=== PATIENT | female | born 1960 | race Caucasian/White ===

== ENCOUNTER → 2017-03-30 | Outpatient (CLI) | payer MEDICAID ==
--- NOTE | 2017-03-30 16:58 | PN ---
PROGRESS NOTE DATE OF SERVICE: 03/30/2017 56-year-old lady who has been followed in [facility] for treatment of obstructive sleep apnea-hypopnea syndrome. Patient successfully continued to use his CPAP equipment every night without significant problem with the machine mask. No snoring. No daytime sleepiness. [place] Sleepiness Scale is 3. The patient lost her weight down from 178 pounds during the previous visit up to 147 pounds today. I checked CPAP unit. CPAP pressure is 6 cm of water usage is 30/30 nights for more than 4 hours. Average usage time is 6.06 hours during. PHYSICAL EXAM: Patient in no distress BP 108/64, HR 58, 16. Height 5 feet 4 inches, weight 147, BMI 25.2, temperature 98.3. Oxygen saturation on room air 100% on room to walk: The oropharynx extremely low position of soft palate. Neck Supple, no JVD. Thyroid is not palpable. LUNGS Clear to percussion and to auscultation. Good air exchange. No wheezing or rhonchi. HEART S1, S2 regular. No murmurs, gallops, or rubs. ABDOMEN Soft and nontender. Bowel sounds are present. No organomegaly appreciated. EXTREMITIES No clubbing or cyanosis. EXPERIMENTAL MACHINING LAB MANAGER Awake, alert, and oriented X3. Cranial nerves 2 to 7 intact. There is no fasciculation or atrophy. noted. No focal deficits observed. IMPRESSION: 1. Obstructive sleep apnea-hypopnea syndrome. Patient demonstrated 100% compliance with treatment benefitting from treatment. 2. Patient normalize showed weight to normal, body mass index 25.2. 3. History of allergy, not any seasonal allergy problems for the last two months. 4. Status post hysterectomy. PLAN: 1. Patient will continue to use her CPAP equipment every night. 2. Watching weight. 3. No driving if feeling sleepiness. 4. Sleep hygiene with time in bed for at least 8 hours. 5. Prescription for all necessary CPAP supplies. Thank you very much for allowing me to participate in management of your patient. Sincerely, Danny Best MD, PhD, FAASM Diplomat of [place] [employer] [place] [employer] Skate Shop Attendant of [facility] [place] MMODL / IJN: [id number] /
== END ==
LOC: SLEEP 15:06
PROVIDERS: ATTEND Internal Medicine
DX: G47.33 Obstructive sleep apnea (adult) (pediatric) (principal); Z90.710 Acquired absence of both cervix and uterus; Z68.25 Body mass index [BMI] 25.0-25.9, adult

== ENCOUNTER → 2017-07-10 | Outpatient (CLI) | payer MEDICAID ==
--- NOTE | 2017-07-10 12:36 | BD ---
EXAMINATION TYPE: MG DEXA axial skeleton. DATE OF EXAM: 07/10/2017 COMPARISON: 05.01.2015 CLINICAL HISTORY: 57YR OLD FEMALE: ICD-10 CODE M89.9 DISORDER OF BONE Height: 52.8 Weight: 145 FRAX RISK QUESTIONS: Alcohol (3 or more units per day): NO Family History (Parent hip fracture): NO Glucocorticoids (More than 3mos): NO (Ex: prednisone, prednisolone, methylprednisolone, dexamethasone, and hydrocortisone). History of Fracture in Adulthood: NO Secondary Osteoporosis: NO 1. Type 1 Diabetes: NO 2. Hyperthyroidism: NO 3. Menopause before 45: NO 4. Malnutrition: NO 5. Chronic liver disease: NO Rheumatoid Arthritis: NO Current Tobacco Use: NO RISK FACTORS HISTORY OF: Family History of Osteoporosis: NONE KNOWN Active: YES Diet low in dairy products/other sources of calcium: NO Postmenopausal woman: 50 YRS OLD Hyperparathyroidism: NO Adrenal Insufficiency: NO MEDICATIONS: Additional Medications: NONE TO NOTE Additional History: NONE TO NOTE EXAM MEASUREMENTS: Bone mineral densitometry was performed using the [employer] System. Bone mineral density as measured about the Lumbar spine is: ----- L1-L4(G/cm2): 0.971 T Score Values are as follows: ----- L1: -1.3 ----- L2: -1.9 ----- L3: -2.2 ----- L4: -1.6 ----- L1-L4: -1.7 Bone mineral density has: Decreased -9.6% SINCE 05.01.2015 Bone mineral density about the R hip (g/cm2): 0.920 Bone mineral density about the L hip (g/cm2): 0.921 T Score values are as follows: -----R Neck: -1.1 -----L Neck: -1.4 -----R Total: -0.7 -----L Total: -0.7 Bone mineral density has: Decreased -6.2% SINCE 05.01.2015 FRAX%S: THERE IS A 6.9% CHANCE OF A MAJOR OSTEOPOROTIC FX AND A 0.5% FOR HIP FX....PROBABILITY OF FX IN 10 YRS TIME IMPRESSION: Osteopenia (T Score between -2.5 and -1) with regards to both hips. There is slightly increased risk of fracture and the patient may be considered for treatment. Re-Screen 2-5 years. NOTE: T-SCORE=SD OF THE YOUNG ADULT MEAN.
--- NOTE | 2017-07-11 12:08 | MM ---
Reason for exam: screening (asymptomatic). Last mammogram was performed 1 year and 2 months ago. History: Patient is postmenopausal. Family history of breast cancer in mother at age 65. Benign stereotactic core biopsy of the right breast, June 07, 2004. Took hormonal contraceptives for 8 years 6 months beginning at age 20. Physical Findings: A clinical breast exam by your physician is recommended on an annual basis and results should be correlated with mammographic findings. MG 3D Screening Mammo W/Cad Bilateral CC and MLO view(s) were taken. Prior study comparison: May 03, 2016, bilateral MG 3d screening mammo w/cad. May 12, 2015, left breast MG 3d work up w/cad LT. The breast tissue is heterogeneously dense. This may lower the sensitivity of mammography. Benign calcifications bilaterally. Right biopsy marker noted. ASSESSMENT: Benign, BI-RAD 2 RECOMMENDATION: Routine screening mammogram of both breasts in 1 year.
== END | disposition home or self-care (01) ==
LOC: RADMAMWWP 09:41
PROVIDERS: ATTEND Obstetrics & Gynecology
DX: Z12.31 Encounter for screening mammogram for malignant neoplasm of breast (principal); M85.851 Other specified disorders of bone density and structure, right thigh; M85.852 Other specified disorders of bone density and structure, left thigh
CPT/HCPCS: 77063; 77067; 77080

== ENCOUNTER → 2018-04-12 | Outpatient (CLI) | payer MEDICAID ==
--- NOTE | 2018-04-12 17:37 | PN ---
PROGRESS NOTE DATE OF SERVICE: 04/12/2018 This patient is a 57-year-old lady who has been followed in the sleep center for treatment of obstructive sleep apnea-hypopnea syndrome. Patient continues to use her CPAP equipment every night for the whole night without significant problems related to the CPAP unit, mask or any supplies. No snoring with the machine. No excessive daytime sleepiness. [place] Sleepiness Scale is 4, which is normal. I checked her CPAP unit. Patient is using the equipment every night for the whole night; 100% of the time for more than 4 hours. Average usage is 6.06 hours per night. Machine does not have information about apnea-hypopnea index. MEDICATION: None at the present time. PHYSICAL EXAMINATION: GENERAL: A pleasant patient in no distress. VITAL SIGNS: BP 111/61, HR 65, RR 16, height 5 feet 2-1/2 inches, weight 159.6, body mass index 28.6. Patient's weight increased by around 12 pounds since her previous visit. Temperature 98.1, oxygen saturation at room air 96%. HEENT: PERRLA, EOMI. Evaluation of oropharynx showed tongue protrudes midline. Extremely low position of soft palate. NECK: Supple. No JVD. Thyroid is not palpable. LUNGS: Clear to percussion and to auscultation. Good air exchange. No wheezing or rhonchi. HEART: S1, S2 regular. No murmurs, gallops or rubs. ABDOMEN: Soft and nontender. Bowel sounds are present. No organomegaly. EXTREMITIES: No clubbing or cyanosis. SENIOR QA ANALYST: Awake, alert, and oriented X3. Cranial nerves 2 to 7 intact. There is no fasciculation or atrophy. noted. No focal deficits observed. IMPRESSION: 1. Obstructive sleep apnea-hypopnea syndrome. The patient demonstrated 100% compliance with treatment, benefitting from treatment. 2. History of allergies in the past. No significant problems now. 3. Status post hysterectomy. PLAN: 1. Patient will continue to use her equipment every night for the whole night. 2. We will maintain prescription for all necessary CPAP supplies, including mask, tube, filters. 3. Watching and losing weight. 4. Sleep hygiene with regular time in bed for at least 8 hours. Thank you very much for allowing me to participate in the management of your patient. Sincerely, Danny Best MD, PhD, FAASM Diplomat of [place] [employer] [place] [employer] Road Patcher [facility] [place] MMODL / SITA: [id number] /
== END ==
LOC: SLEEP 15:01
PROVIDERS: ATTEND Internal Medicine
DX: G47.33 Obstructive sleep apnea (adult) (pediatric) (principal); Z90.710 Acquired absence of both cervix and uterus; Z99.89 Dependence on other enabling machines and devices

== ENCOUNTER → 2018-07-12 | Outpatient (CLI) | payer MEDICAID ==
--- NOTE | 2018-07-16 08:15 | MM ---
Reason for exam: screening (asymptomatic). Last mammogram was performed 1 year ago. History: Patient is postmenopausal. Family history of breast cancer in mother at age 65. Benign stereotactic core biopsy of the right breast, June 07, 2004. Took hormonal contraceptives for 8 years 6 months beginning at age 20. Physical Findings: A clinical breast exam by your physician is recommended on an annual basis and results should be correlated with mammographic findings. MG 3D Screening Mammo W/Cad Bilateral CC and MLO view(s) were taken. Prior study comparison: July 10, 2017, bilateral MG 3d screening mammo w/cad. May 03, 2016, bilateral MG 3d screening mammo w/cad. The breast tissue is heterogeneously dense. This may lower the sensitivity of mammography. Previous mammotome biopsy in the right breast. There is chronic nodularity in the right breast. No significant changes when compared with prior studies. ASSESSMENT: Benign, BI-RAD 2 RECOMMENDATION: Routine screening mammogram of both breasts in 1 year.
== END ==
LOC: RADMAMWWP 14:41
PROVIDERS: ATTEND Obstetrics & Gynecology
DX: Z12.31 Encounter for screening mammogram for malignant neoplasm of breast (principal)
CPT/HCPCS: 77063; 77067

== ENCOUNTER → 2019-04-25 | Outpatient (CLI) | payer MEDICAID ==
--- NOTE | 2019-04-25 16:17 | PN ---
PROGRESS NOTE DATE OF SERVICE: 04/25/2019 This patient is a 58-year-old lady who has been followed in Sleep Center for treatment of obstructive sleep apnea-hypopnea syndrome. The patient continues to use her CPAP equipment every night for the whole night without significant problems related to mask fitting, pressure, or humidification. [place] Sleepiness Scale today is 3. I checked her CPAP unit. Usage is 30/30 nights for more than 4 hours. Average usage is 6 hours and 6 minutes. CPAP pressure is 6 cm of water. Her CPAP unit does not have information about apnea-hypopnea index. MEDICATIONS: None. PHYSICAL EXAMINATION: GENERAL: A pleasant patient in no distress. VITAL SIGNS: BP 118/66, HR 70, RR 16. Height 5 feet 4 inches, weight 161, BMI 27.6, temperature 97.6, oxygen saturation at room air 98.1. HEENT: PERRLA, EOMI. Evaluation of oropharynx showed tongue protrudes midline. Extremely low position of soft palate. Mallampati IV. NECK: Supple. No JVD. Thyroid is not palpable. LUNGS: Clear to percussion and to auscultation. Good air exchange. No wheezing or rhonchi. HEART: S1, S2 regular. No murmurs, gallops or rubs. ABDOMEN: Soft and nontender. Bowel sounds are present. No organomegaly. EXTREMITIES: No clubbing or cyanosis. HYDRAULIC BARKER OPERATOR: Awake, alert, and oriented X3. Cranial nerves 2 to 7 intact. There is no fasciculation or atrophy. noted. No focal deficits observed. IMPRESSION: 1. Obstructive sleep apnea-hypopnea syndrome. Patient has demonstrated great compliance with treatment, benefitting from treatment. 2. Status post total hysterectomy. 3. Seasonal allergies. PLAN: 1. Prescription for all necessary CPAP supplies, including mask, tube, filters. 2. Patient will continue to use CPAP equipment every night for the whole night. 3. Watching weight. 4. Sleep hygiene with regular time in bed for 8 hours. 5. Follow-up visit in one year, or earlier if patient has any problems. Thank you very much for allowing me to participate in the management of your patient. Sincerely, Danny Best MD, PhD, FAASM Diplomat of [place] [employer] [place] [employer] Director Of Product Marketing of [facility] [place] MMODL / IJN: [id number] /
== END | disposition home or self-care (01) ==
LOC: SLEEP 15:14
PROVIDERS: ATTEND Internal Medicine
DX: G47.33 Obstructive sleep apnea (adult) (pediatric) (principal); Z90.710 Acquired absence of both cervix and uterus; Z99.89 Dependence on other enabling machines and devices

== ENCOUNTER 2019-10-31 10:24 | Day surgery (SDC) | payer MEDICAID ==
[2019-10-29 15:17] VITALS: BMI 26.6
[~2019-10-31 10:24] MED LIST: LACTATED RINGERS 1,000 ML IV SCH
[2019-10-31 10:49] VITALS: TEMP 98.3
[2019-10-31] MEDS ORDERED: PROPOFOL 10 MG/ML 20 ML VIAL IV ONE (12:07)
--- NOTE | 2019-10-31 12:27 | P.PCN ---
Date of Procedure: 10/31/19 Procedure(s) Performed: BRIEF HISTORY: Patient is a 58-year-old pleasant female scheduled for an elective colonoscopy as a part of screening for colorectal neoplasia. Last colonoscopy was 10 years ago. PROCEDURE PERFORMED: Colonoscopy. PREOPERATIVE DIAGNOSIS: Screening for colon cancer. IV sedation per Anesthesia. PROCEDURE: After informed consent was obtained, the patient, was brought into the endoscopy unit. IV sedation was administered by Anesthesia under continuous monitoring. Digital rectal examination was normal. Initially the Olympus CF-160 flexible video colonoscope was then inserted in the rectum, gradually advanced into the cecum without any difficulty. Careful examination was performed as the scope was gradually being withdrawn. Ileocecal valve and the appendiceal orifice were visualized and appeared normal. Prep was excellent. Mucosa of the cecum, ascending colon, transverse colon, descending colon, sigmoid colon, and rectum appeared normal. Retroflexion was performed in the rectum and no lesions were seen. The patient tolerated the procedure well. IMPRESSION: Normal-appearing colon from rectum to cecum with no evidence of colorectal neoplasia. RECOMMENDATIONS: Findings of this examination were discussed with the patient .as well as a family. She was advised to have a repeat screening colonoscopy in 10 years
[2019-10-31 12:47] VITALS: BP 119/68; PULSE 59; RESP 20
== END 2019-10-31 13:08 | disposition home or self-care (01) ==
LOC: ORWHC2ENDO 10:24
PROVIDERS: ATTEND Internal Medicine Gastroenterology
DX: Z12.11 Encounter for screening for malignant neoplasm of colon (principal); G47.33 Obstructive sleep apnea (adult) (pediatric); Z88.0 Allergy status to penicillin; Z91.040 Latex allergy status; Z88.4 Allergy status to anesthetic agent; Z99.89 Dependence on other enabling machines and devices; Z79.899 Other long term (current) drug therapy
CPT/HCPCS: J2704; G0121

== ENCOUNTER → 2019-11-05 | Outpatient (CLI) | payer MEDICAID ==
--- NOTE | 2019-11-06 08:25 | MM ---
Reason for exam: screening (asymptomatic). Last mammogram was performed 1 year and 4 months ago. History: Patient is postmenopausal. Family history of breast cancer in mother at age 65. Benign stereotactic core biopsy of the right breast, June 07, 2004. Took hormonal contraceptives for 8 years 6 months beginning at age 20. Physical Findings: A clinical breast exam by your physician is recommended on an annual basis and results should be correlated with mammographic findings. MG 3D Screening Mammo W/Cad Bilateral CC and MLO view(s) were taken. Prior study comparison: July 12, 2018, bilateral MG 3d screening mammo w/cad. July 10, 2017, bilateral MG 3d screening mammo w/cad. The breast tissue is heterogeneously dense. This may lower the sensitivity of mammography. There is no discrete abnormality. No significant changes when compared with prior studies. ASSESSMENT: Negative, BI-RAD 1 RECOMMENDATION: Routine screening mammogram of both breasts in 1 year.
== END | disposition home or self-care (01) ==
LOC: RADMAMWWP 07:14
PROVIDERS: ATTEND Obstetrics & Gynecology
DX: Z12.31 Encounter for screening mammogram for malignant neoplasm of breast (principal); Z80.3 Family history of malignant neoplasm of breast
CPT/HCPCS: 77063; 77067

== ENCOUNTER → 2019-12-11 | Outpatient (CLI) | payer MEDICAID ==
--- NOTE | 2019-12-11 17:44 | BD ---
EXAMINATION TYPE: Axial Bone Density DATE OF EXAM: 12/11/2019 COMPARISON: 07/10/2017 CLINICAL HISTORY: Height: 62 IN Weight: 166 LBS RISK FACTORS HISTORY OF: Active: YES Diet low in dairy products/other sources of calcium: YES Postmenopausal woman: AGE 48 PARTIAL HYST MEDICATIONS: Additional Medications: CALCIUM, VIT D, EXAM MEASUREMENTS: Bone mineral densitometry was performed using the [employer] System. Bone mineral density as measured about the Lumbar spine is: ----- L1-L4(G/cm2): 0.907 T Score Values are as follows: ----- L2: -2.3 ----- L3: -2.7 ----- L4: -2.2 ----- L1-L4: -2.3 Bone mineral density has: Decreased -5.8% since study of: 07/10/2017 Bone mineral density about the R hip (g/cm2): 0.865 Bone mineral density about the L hip (g/cm2): 0.842 T Score values are as follows: -----R Neck: -1.2 -----L Neck: -1.4 -----R Total: -0.7 -----L Total: -0.6 Bone mineral density has: Increased 0.9% since study of: 07/10/2017 IMPRESSION: Osteopenia (T Score between -2.5 and -1). There is slightly increased risk of fracture and the patient may be considered for treatment. Re-Screen 2-5 years. NOTE: T-SCORE=SD OF THE YOUNG ADULT MEAN.
== END | disposition home or self-care (01) ==
LOC: RADBDWWP 14:43
PROVIDERS: ATTEND Obstetrics & Gynecology
DX: M85.80 Other specified disorders of bone density and structure, unspecified site (principal)
CPT/HCPCS: 77080

== ENCOUNTER 2020-04-27 09:39 | Emergency (ER) | payer MEDICAID ==
[2020-04-27] MEDS ORDERED: MECLIZINE 12.5 MG TAB PO STA (10:11)
[2020-04-27] MEDS ORDERED: SODIUM CHLORIDE 0.9% 1,000 ML IV STA (10:11)
[2020-04-27] MEDS ORDERED: diphenhydrAMINE 50 MG/ML 1 ML VIAL IVP STA (10:13)
[2020-04-27 10:31] LABS: Basophils % (A) 1 %; Eosinophils # (A) 0.1 k/uL (0-0.7); Eosinophils % (A) 2 %; HCT 42.2 % (34.0-46.0); HGB 14.5 gm/dL (11.4-16.0); Lymphocytes # (A) 1.4 k/uL (1.0-4.8); Lymphocytes % (A) 25 %; MCH 30.5 pg (25.0-35.0); MCHC 34.3 g/dL (31.0-37.0); Mean Platelet Volume 8.1; Monocytes # (A) 0.3 k/uL (0-1.0); Monocytes % (A) 4 %; Neutrophils # (A) 3.7 k/uL (1.3-7.7); Neutrophils % (A) 66 %; Platelet Count 237 k/uL (150-450); RBC 4.74 m/uL (3.80-5.40); RDW 11.8 % (11.5-15.5); WBC 5.6 k/uL (3.8-10.6)
[2020-04-27 10:37] LABS: ALT 20 U/L (4-34); AST 21 U/L (14-36); African American GFR (CKD) >90 (>60 ml/min/1.73 sqM); Alkaline Phosphatase 96 U/L (38-126); Anion Gap 6 mmol/L; Blood Urea Nitrogen 13 mg/dL (7-17); C Reactive Protein <5.0 mg/L (<10.0); Calcium 9.8 mg/dL (8.4-10.2); Carbon Dioxide 24 mmol/L (22-30); Chloride 109 mmol/L (98-107); Glucose 100 mg/dL (74-99); Magnesium 1.9 mg/dL (1.6-2.3); Non-African American GFR(CKD) >90 (>60 ml/min/1.73 sqM); Potassium 4.3 mmol/L (3.5-5.1); Sodium 139 mmol/L (137-145); Total Bilirubin 0.6 mg/dL (0.2-1.3); Total Protein 6.8 g/dL (6.3-8.2)
[2020-04-27 10:38] LABS: Partial Thromboplastin Time 23.3 sec (22.0-30.0); Prothrombin Time 10.3 sec (9.0-12.0)
--- NOTE | 2020-04-27 10:48 | XR ---
EXAMINATION TYPE: XR chest 2V DATE OF EXAM: 04/27/2020 COMPARISON: NONE HISTORY: Shortness of breath TECHNIQUE: Frontal and lateral views of the chest are obtained. FINDINGS: Scattered senescent parenchymal changes noted. Hyperinflation compatible with COPD. Patchy density right medial lung base may reflect developing infiltrate. Correlate clinically. Heart size is stable. Mediastinal structures are stable and grossly unremarkable. No evidence for hilar prominence. Degenerative changes dorsal spine. IMPRESSION: 1. Patchy density right medial lung base may reflect developing infiltrate. Correlate clinically.
[2020-04-27 10:49] VITALS: RESP 18
--- NOTE | 2020-04-27 10:51 | ED ---
Dizziness HPI - General Chief Complaint: Dizziness Stated Complaint: dizziness Time Seen by Provider: 04/27/20 10:01 Source: patient, EMS Mode of arrival: EMS Limitations: no limitations - History of Present Illness Initial Comments: Patient is a 59-year-old female presenting to the emergency Department with complaints of dizziness that began this morning. Patient states 3 days ago she began having intermittent diarrhea, some mild nausea and a sore throat. Patient denies having a fever but today has chills. Patient states when she woke up this morning the room was spinning and it has not stopped. She denies history of vertigo. She states she does have some mild shortness of breath but no cough, she denies history of lung disease, COPD. She takes no medications. She admits to mild nausea, no vomiting, no more diarrhea. She denies having headache. She states it does not matter the position she is, the room spinning. She has no further complaints at this time. Upon arrival to the ER, her vitals are stable. - Related Data Home Medications Medication Instructions Recorded Confirmed Cetirizine HCl/Pseudoephedrine 1 tab PO BID PRN 10/29/19 04/27/20 [Zyrtec-D Tablet] Previous Rx's Medication Instructions Recorded Meclizine [Antivert] 25 mg PO BID #20 tab 04/27/20 Allergies Allergy/AdvReac Type Severity Reaction Status Date / Time Penicillins Allergy Severe SEVERE Verified 04/27/20 10:23 REACTION IN FAMILY latex Allergy Intermediate ITCHY Verified 04/27/20 10:23 EYES, SENSITIVE SKIN lidocaine Allergy Intermediate SWEATING Verified 04/27/20 10:23 PROFUSELY, DYSPNEA Review of Systems ROS Statement: Those systems with pertinent positive or pertinent negative responses have been documented in the HPI. ROS Other: All systems not noted in ROS Statement are negative. Past Medical History Past Medical History: No Reported History History of Any Multi-Drug Resistant Organisms: None Reported Past Surgical History: Hysterectomy Additional Past Surgical History / Comment(s): bladder sling Past Psychological History: No Psychological Hx Reported Smoking Status: Never smoker Past Alcohol Use History: Occasional Past Drug Use History: None Reported General Exam - General Exam Comments Initial Comments: GENERAL: Patient is well-developed and well-nourished. Patient is nontoxic and in mild distress. HEAD: Atraumatic, normocephalic. EYES: Pupils equal round and reactive to light, extraocular movements intact, sclera anicteric, conjunctiva are normal. Eyelids were unremarkable. No nystagmus. ENT: TMs normal, nares patent, oropharynx clear without exudates. Moist mucous membranes. NECK: Normal range of motion, supple without lymphadenopathy or JVD. LUNGS: Unlabored respirations. Breath sounds clear to auscultation bilaterally and equal. No wheezes rales or rhonchi. HEART: Regular rate and rhythm without murmurs, rubs or gallops. ABDOMEN: Soft, nontender, normoactive bowel sounds. No guarding, no rebound. No masses appreciated. : Deferred MUSCULOSKELETAL: Normal extremities with adequate strength and normal range of motion, no pitting or edema. No clubbing or cyanosis. NEUROLOGICAL: Patient is alert and oriented x 3. Motor and sensory are also intact. Cranial nerves II through XII grossly intact. Symmetrical smile. Normal speech, normal gait. PSYCH: Normal mood, normal affect. SKIN: Warm, Dry, normal turgor, no rashes or lesions noted. Limitations: no limitations Course Vital Signs 04/27/20 04/27/20 04/27/20 09:42 10:02 10:48 Temperature 97.3 F L Pulse Rate 65 65 Pulse Rate [ 62 Automatic Glove Former ] Respiratory 24 18 Rate Blood Pressure 114/96 121/49 O2 Sat by Pulse 100 100 Oximetry 04/27/20 04/27/20 11:19 12:11 Temperature 97.7 F Pulse Rate 70 67 Pulse Rate [ Automatic Glove Former ] Respiratory 18 18 Rate Blood Pressure 122/67 111/66 O2 Sat by Pulse 100 98 Oximetry EKG Findings - EKG Comments: EKG Findings:: Normal sinus rhythm, normal ECG, no signs of acute process. Ventricular rate 64, IN interval 1:30, QTC 428. Medical Decision Making - Medical Decision Making Patient is a 59-year-old female here for dizziness that started this morning. Her vital signs are stable upon arrival, her exam is unremarkable, no acute neuro deficits. Labs show a normal white count, normal coags, lactic acid is slightly elevated at 2.2, troponin and CRP are both negative. Urine shows no evidence of infection, rapid Covid test is not detected. EKG shows no acute process, chest x-ray reveals a patchy density the right medial lung base, may reflect a developing infiltrate. Patient was given fluids, meclizine as well as Benadryl. She reports improvement in her symptoms. She states the room is not spinning anymore, she continues to feel very mildly lightheaded. She was able to cannulate the restroom without difficulty. She states that she feels well enough to go home. I discussed with patient that her symptoms could be viral related or could be vertigo. I did recommend following up with her PCP. We'll give her prescription for meclizine to use as needed for additional vertigo symptoms. Patient is in agreement with this plan of care. Return parameters were discussed with the patient and she verbalized understanding. Case dis cussed with Dr. Vance. - Lab Data Result diagrams: 04/27/20 10:15 04/27/20 10:15 Lab Results 04/27/20 04/27/20 04/27/20 Range/Units 10:15 10:15 10:15 WBC 5.6 (3.8-10.6) k/uL RBC 4.74 (3.80-5.40) m/uL Hgb 14.5 (11.4-16.0) gm/dL Hct 42.2 (34.0-46.0) % MCV 89.0 (80.0-100.0) fL MCH 30.5 (25.0-35.0) pg MCHC 34.3 (31.0-37.0) g/dL RDW 11.8 (11.5-15.5) % Plt Count 237 (150-450) k/uL MPV 8.1 Neutrophils % 66 % Lymphocytes % 25 % Monocytes % 4 % Eosinophils % 2 % Basophils % 1 % Neutrophils # 3.7 (1.3-7.7) k/uL Lymphocytes # 1.4 (1.0-4.8) k/uL Monocytes # 0.3 (0-1.0) k/uL Eosinophils # 0.1 (0-0.7) k/uL Basophils # 0.0 (0-0.2) k/uL PT 10.3 (9.0-12.0) sec INR 1.0 (<1.2) APTT 23.3 (22.0-30.0) sec Sodium 139 (137-145) mmol/L Potassium 4.3 (3.5-5.1) mmol/L Chloride 109 H (98-107) mmol/L Carbon Dioxide 24 (22-30) mmol/L Anion Gap 6 mmol/L BUN 13 (7-17) mg/dL Creatinine 0.57 (0.52-1.04) mg/dL Est GFR (CKD-EPI)AfAm >90 (>60 ml/min/1.73 sqM) Est GFR (CKD-EPI)NonAf >90 (>60 ml/min/1.73 sqM) Glucose 100 H (74-99) mg/dL Lactic Ac Sepsis Rflx Plasma Lactic Acid Gennaro (0.7-2.0) mmol/L Calcium 9.8 (8.4-10.2) mg/dL Magnesium 1.9 (1.6-2.3) mg/dL Total Bilirubin 0.6 (0.2-1.3) mg/dL AST 21 (14-36) U/L ALT 20 (4-34) U/L Alkaline Phosphatase 96 (38-126) U/L Troponin I (0.000-0.034) ng/mL C-Reactive Protein <5.0 (<10.0) mg/L Total Protein 6.8 (6.3-8.2) g/dL Albumin 4.0 (3.5-5.0) g/dL Urine Color Urine Appearance (Clear) Urine pH (5.0-8.0) Ur Specific [place] (1.001-1.035) Urine Protein (Negative) Urine Glucose (UA) (Negative) Urine Ketones (Negative) Urine Blood (Negative) Urine Nitrite (Negative) Urine Bilirubin (Negative) Urine Urobilinogen (<2.0) mg/dL Ur Leukocyte Esterase (Negative) Coronavirus (PCR) (Not Detectd) 04/27/20 04/27/20 04/27/20 Range/Units 10:15 10:15 10:15 WBC (3.8-10.6) k/uL RBC (3.80-5.40) m/uL Hgb (11.4-16.0) gm/dL Hct (34.0-46.0) % MCV (80.0-100.0) fL MCH (25.0-35.0) pg MCHC (31.0-37.0) g/dL RDW (11.5-15.5) % Plt Count (150-450) k/uL MPV Neutrophils % % Lymphocytes % % Monocytes % % Eosinophils % % Basophils % % Neutrophils # (1.3-7.7) k/uL Lymphocytes # (1.0-4.8) k/uL Monocytes # (0-1.0) k/uL Eosinophils # (0-0.7) k/uL Basophils # (0-0.2) k/uL PT (9.0-12.0) sec INR (<1.2) APTT (22.0-30.0) sec Sodium (137-145) mmol/L Potassium (3.5-5.1) mmol/L Chloride (98-107) mmol/L Carbon Dioxide (22-30) mmol/L Anion Gap mmol/L BUN (7-17) mg/dL Creatinine (0.52-1.04) mg/dL Est GFR (CKD-EPI)AfAm (>60 ml/min/1.73 sqM) Est GFR (CKD-EPI)NonAf (>60 ml/min/1.73 sqM) Glucose (74-99) mg/dL Lactic Ac Sepsis Rflx Plasma Lactic Acid Gennaro 2.2 H* (0.7-2.0) mmol/L Calcium (8.4-10.2) mg/dL Magnesium (1.6-2.3) mg/dL Total Bilirubin (0.2-1.3) mg/dL AST (14-36) U/L ALT (4-34) U/L Alkaline Phosphatase (38-126) U/L Troponin I <0.012 (0.000-0.034) ng/mL C-Reactive Protein (<10.0) mg/L Total Protein (6.3-8.2) g/dL Albumin (3.5-5.0) g/dL Urine Color Urine Appearance (Clear) Urine pH (5.0-8.0) Ur Specific [place] (1.001-1.035) Urine Protein (Negative) Urine Glucose (UA) (Negative) Urine Ketones (Negative) Urine Blood (Negative) Urine Nitrite (Negative) Urine Bilirubin (Negative) Urine Urobilinogen (<2.0) mg/dL Ur Leukocyte Esterase (Negative) Coronavirus (PCR) Not Detected (Not Detectd) 04/27/20 04/27/20 Range/Units 10:45 11:05 WBC (3.8-10.6) k/uL RBC (3.80-5.40) m/uL Hgb (11.4-16.0) gm/dL Hct (34.0-46.0) % MCV (80.0-100.0) fL MCH (25.0-35.0) pg MCHC (31.0-37.0) g/dL RDW (11.5-15.5) % Plt Count (150-450) k/uL MPV Neutrophils % % Lymphocytes % % Monocytes % % Eosinophils % % Basophils % % Neutrophils # (1.3-7.7) k/uL Lymphocytes # (1.0-4.8) k/uL Monocytes # (0-1.0) k/uL Eosinophils # (0-0.7) k/uL Basophils # (0-0.2) k/uL PT (9.0-12.0) sec INR (<1.2) APTT (22.0-30.0) sec Sodium (137-145) mmol/L Potassium (3.5-5.1) mmol/L Chloride (98-107) mmol/L Carbon Dioxide (22-30) mmol/L Anion Gap mmol/L BUN (7-17) mg/dL Creatinine (0.52-1.04) mg/dL Est GFR (CKD-EPI)AfAm (>60 ml/min/1.73 sqM) Est GFR (CKD-EPI)NonAf (>60 ml/min/1.73 sqM) Glucose (74-99) mg/dL Lactic Ac Sepsis Rflx Y Plasma Lactic Acid Gennaro (0.7-2.0) mmol/L Calcium (8.4-10.2) mg/dL Magnesium (1.6-2.3) mg/dL Total Bilirubin (0.2-1.3) mg/dL AST (14-36) U/L ALT (4-34) U/L Alkaline Phosphatase (38-126) U/L Troponin I (0.000-0.034) ng/mL C-Reactive Protein (<10.0) mg/L Total Protein (6.3-8.2) g/dL Albumin (3.5-5.0) g/dL Urine Color Colorless Urine Appearance Clear (Clear) Urine pH 8.0 (5.0-8.0) Ur Specific [place] 1.004 (1.001-1.035) Urine Protein Negative (Negative) Urine Glucose (UA) Negative (Negative) Urine Ketones Negative (Negative) Urine Blood Negative (Negative) Urine Nitrite Negative (Negative) Urine Bilirubin Negative (Negative) Urine Urobilinogen <2.0 (<2.0) mg/dL Ur Leukocyte Esterase Negative (Negative) Coronavirus (PCR) (Not Detectd) Disposition Clinical Impression: Dehydration, Dizziness Disposition: HOME SELF-CARE Condition: Stable Instructions (If sedation given, give patient instructions): Dizziness (ED) Additional Instructions: Please return to the Emergency Department if symptoms worsen or any other concerns. Please continue to drink plenty of water. Recommend meclizine for additional dizziness, room spinning. Follow-up with your regular doctor as well as her eye doctor. Prescriptions: Meclizine [Antivert] 25 mg PO BID #20 tab Is patient prescribed a controlled substance at d/c from ED?: No Referrals: Mathew Porter MD [Primary Care Provider] - 1-2 days
[2020-04-27 11:21] VITALS: TEMP 97.7
[2020-04-27 11:23] LABS: Appearance,Urine Clear (Clear); Bilirubin,Urine Negative (Negative); Blood,Urine Negative (Negative); Color,Urine Colorless; Glucose,Urine (UA) Negative (Negative); Ketones,Urine Negative (Negative); Leukocyte Esterase,Urine Negative (Negative); Nitrite,Urine Negative (Negative); Protein,Urine Negative (Negative); Specific Gravity,Urine 1.004 (1.001-1.035); Urobilinogen,Urine <2.0 mg/dL (<2.0)
[2020-04-27 12:12] VITALS: BP 111/66; PULSE 67
== END 2020-04-27 12:40 | disposition home or self-care (01) ==
LOC: EC 09:39
DX: R42 Dizziness and giddiness (principal); E86.0 Dehydration; J98.4 Other disorders of lung; R74.02 Elevation of levels of lactic acid dehydrogenase [LDH]; Z88.0 Allergy status to penicillin; Z91.040 Latex allergy status; Z88.4 Allergy status to anesthetic agent; Z20.828 Contact with and (suspected) exposure to other viral communicable diseases
CPT/HCPCS: 36415; 93005; 80053; 83605; 83735; 84484; 85025; 85610; 85730; 86140; 81003; 87635; 71046; 99284; 96374; 96361; J1200

== ENCOUNTER → 2020-07-23 | Outpatient (CLI) | payer MEDICAID ==
--- NOTE | 2020-07-23 16:52 | SFUN ---
SLEEP CENTER FOLLOW UP NOTE DATE OF SERVICE: 07/23/2020 This is a 60-year-old lady who has been followed in the sleep center for treatment of obstructive sleep apnea-hypopnea syndrome. The patient continues to use her CPAP equipment every night for the whole night. No clear information about snoring. [place] Sleepiness Scale today is 4, which is normal. She denied any significant problems related to mask fitting, pressure or humidification. I checked her CPAP unit. Usage is 30/30 nights for more than 4 hours. Average usage is 6 hours per night. CPAP pressure is 6 cm of water. Patient does not have information about apnea-hypopnea index or leak. MEDICATIONS: Zyrtec D. PHYSICAL EXAMINATION: GENERAL: A pleasant patient in no distress. VITAL SIGNS: BP 128/84, HR 76, RR 15, height 5 feet 3-1/2 inches, weight 175.4 pounds, temperature 97.1. Oxygen saturation at room air 99%. HEENT: PERRLA, EOMI. Evaluation of oropharynx showed tongue protrudes midline. Extremely low position of soft palate. Mallampati IV. NECK: Supple. No JVD. Thyroid is not palpable. LUNGS: Clear to percussion and to auscultation. Good air exchange. No wheezing or rhonchi. HEART: S1, S2 regular. No murmurs, gallops or rubs. ABDOMEN: Soft and nontender. Bowel sounds are present. No organomegaly appreciated. EXTREMITIES: No clubbing or cyanosis. POULTRY HATCHERY MANAGER: Awake, alert, and oriented X3. Cranial nerves 2 to 7 intact. There is no fasciculation or atrophy. noted. No focal deficits observed. IMPRESSION: 1. Obstructive sleep apnea-hypopnea syndrome. Patient demonstrated 100% compliance with treatment, benefitting from treatment. 2. Seasonal allergies. 3. Mild obesity. 4. Status post total hysterectomy. PLAN: 1. Patient will continue to use PAP equipment every night for the whole night. 2. Sleep hygiene with regular time in bed for at least 7-1/2 to 8 hours. 3. Precautions related to driving. No driving if feeling sleepiness. 4. I will maintain all necessary prescription for PAP supplies including mask, tube, filters. 5. Watching weight. 6. Follow-up visit in 6 months or earlier if patient has any problems. Thank you very much for allowing me to participate in the management of your patient. Sincerely, Danny Stefadu, MD, PhD, FAASM Diplomat of [employer] Stripper Machine Operator of [facility] [place] MMMARTINEZ / SITA: [id number] /
== END ==
LOC: SLEEP 13:08
PROVIDERS: ATTEND Internal Medicine
DX: G47.33 Obstructive sleep apnea (adult) (pediatric) (principal); J30.2 Other seasonal allergic rhinitis; E66.9 Obesity, unspecified; Z90.710 Acquired absence of both cervix and uterus

== ENCOUNTER → 2021-03-16 | Outpatient (CLI) | payer MEDICAID ==
--- NOTE | 2021-03-18 14:30 | MM ---
Reason for exam: screening (asymptomatic). Last mammogram was performed 1 year and 4 months ago. History: Patient is postmenopausal. Family history of breast cancer in mother at age 65. Benign stereotactic core biopsy of the right breast, June 07, 2004. Took hormonal contraceptives for 8 years 6 months beginning at age 20. Physical Findings: A clinical breast exam by your physician is recommended on an annual basis and results should be correlated with mammographic findings. MG 3D Screening Mammo W/Cad Bilateral CC and MLO view(s) were taken. Prior study comparison: November 05, 2019, bilateral MG 3d screening mammo w/cad. July 12, 2018, bilateral MG 3d screening mammo w/cad. The breast tissue is heterogeneously dense. This may lower the sensitivity of mammography. Previous mammotome biopsy in the right breast. There is chronic nodularity in the right breast. Stable grouped and regional punctate calcifications right posterior upper outer quadrant. No significant changes when compared with prior studies. ASSESSMENT: Benign, BI-RAD 2 RECOMMENDATION: Routine screening mammogram of both breasts in 1 year.
== END | disposition home or self-care (01) ==
LOC: RADMAMWWP 14:59
PROVIDERS: ATTEND Obstetrics & Gynecology
DX: Z12.31 Encounter for screening mammogram for malignant neoplasm of breast (principal); Z78.0 Asymptomatic menopausal state; Z80.3 Family history of malignant neoplasm of breast
CPT/HCPCS: 77063; 77067

== ENCOUNTER → 2021-04-23 | Outpatient (CLI) | payer MEDICAID ==
--- NOTE | 2021-04-23 16:35 | US ---
EXAMINATION TYPE: US transvaginal DATE OF EXAM: 04/23/2021 COMPARISON: US CLINICAL HISTORY: R10.2 Pelvic Pain. Right pelvic pain x 4 days; hysterectomy and bladder sling surge ry 8 years ago; . TECHNIQUE: TV US Transvaginal sonographic images were medically necessary per order Date of LMP: 8 years ago EXAM MEASUREMENTS: Uterus: surgically removed Endometrial Stripe: surgically removed Right Ovary: 1.8 x 1.0 x 1.4 cm Left Ovary: 1.4 x 1.3 x 1.2 cm 1. Right Ovary: small follicle seen 2. Left Ovary: small follicle seen Spectral, color and waveform doppler imaging shows good arterial and venous flow within the ovaries ; there is no evidence for ovarian torsion. 3. Bilateral Adnexa: wnl 4. Posterior cul-de-sac: wnl Impressions: 1. Normal post hysterectomy pelvic ultrasound.
== END | disposition home or self-care (01) ==
LOC: RADUSWWP 12:56
PROVIDERS: ATTEND Obstetrics & Gynecology
DX: R10.2 Pelvic and perineal pain (principal)
CPT/HCPCS: 76830; 93975

== ENCOUNTER → 2021-09-23 | Outpatient (CLI) | payer MEDICAID ==
--- NOTE | 2021-09-23 21:45 | SFUN ---
SLEEP CENTER FOLLOW UP NOTE DATE OF SERVICE: 09/23/2021 This 61-year-old lady has been followed in Sleep Center for treatment of obstructive sleep apnea-hypopnea syndrome. The patient continues to use her CPAP equipment every night, getting her CPAP supplies on time and changing her air filter. [place] Sleepiness Scale today is 5, which is normal. I checked her CPAP unit. Range of the pressure is 5 to 10, usage 30/30 nights for more than 4 hours, average 6.1 hours per night, which is great compliance. Leak is 25 L/minute, which is borderline. Apnea-hypopnea index is 0.8, which is absolutely normal. MEDICATIONS: Zyrtec. PHYSICAL EXAMINATION: GENERAL: Pleasant patient in no distress. VITAL SIGNS: BP 95/60, HR 76, RR 16, height 5 feet 3-1/2 inches, weight 174, BMI 30.3, temperature 98.4, oxygen saturation at room air 97%. HEENT: PERRLA, EOMI, evaluation of oropharynx showed tongue protrudes midline. Extremely low position of soft palate; Mallampati IV. NECK: Supple, no JVD. Thyroid is not palpable. LUNGS: Clear to percussion and to auscultation. Good air exchange. No wheezing or rhonchi. HEART: S1, S2 regular. No murmurs, gallops, or rubs. ABDOMEN: Soft and nontender. Bowel sounds are present. No organomegaly appreciated. EXTREMITIES: No clubbing or cyanosis. STIPPLER: Awake, alert, and oriented X3. Cranial nerves 2 to 7 intact. There is no fasciculation or atrophy. noted. No focal deficits observed. IMPRESSION: 1. Obstructive sleep apnea-hypopnea syndrome. Patient demonstrated 100% compliance with treatment, benefitting from treatment. 2. Mild obesity. 3. Seasonal allergies. 4. Status post total hysterectomy. PLAN: 1. Patient will continue to use PAP equipment every night for the whole night. 2. Sleep hygiene with regular time in bed for at least 7-1/2 to 8 hours. 3. Precautions related to driving. No driving if feeling sleepiness. 4. I will maintain all necessary prescription for PAP supplies including mask, tube, filters. 5. Watching weight. 6. Follow-up visit in 6 months or earlier if patient has any problems. Thank you very much for allowing me to participate in the management of your patient. Sincerely, Danny Best MD, PhD, FAASM Diplomat of [employer] Sleep Medicine Board of [employer] Industry Consultant of [facility] [place] HARESH / SITA: [id number] /
== END ==
LOC: SLEEP 15:11
PROVIDERS: ATTEND Internal Medicine
DX: G47.33 Obstructive sleep apnea (adult) (pediatric) (principal); E66.9 Obesity, unspecified; J30.2 Other seasonal allergic rhinitis; Z90.710 Acquired absence of both cervix and uterus; Z99.89 Dependence on other enabling machines and devices; Z68.30 Body mass index [BMI] 30.0-30.9, adult; Z88.0 Allergy status to penicillin; Z91.040 Latex allergy status; Z88.4 Allergy status to anesthetic agent

== ENCOUNTER → 2022-04-04 | Outpatient (CLI) | payer MEDICAID ==
--- NOTE | 2022-04-05 10:36 | BD ---
EXAMINATION TYPE: Axial Bone Density DATE OF EXAM: 04/04/2022 CLINICAL HISTORY: 61 years year old Female. ICD-10 CODE: M85.88 OTH DISORDER OF BONE Height: 5 FT 2 1/2 IN Weight: 182 FRAX RISK QUESTIONS: Alcohol (3 or more units per day): NO Family History (Parent hip fracture): NO Glucocorticoids (More than 3mos): NO (Ex: prednisone, prednisolone, methylprednisolone, dexamethasone, and hydrocortisone). History of Fracture in Adulthood: NO Secondary Osteoporosis: 1. Type 1 Diabetes: NO 2. Hyperthyroidism: NO 3. Menopause before 45: NO 4. Malnutrition: NO 5. Chronic liver disease: NO Rheumatoid Arthritis: NO Current Tobacco Use: NO RISK FACTORS HISTORY OF: Surgery to Spine/Hip(right/left)/Wrist (right/left): NO Family History of Osteoporosis: NO Active: YES Diet low in dairy products/other sources of calcium: NO Postmenopausal woman: YES Take estrogen and/or progesterone medications: NO Lost more than 2 inches in height since high school: NO Frequent falls: NO Poor Health: GOOD Hyperparathyroidism: NO Adrenal Insufficiency: NO MEDICATIONS: Additional Medications: NONE Additional History: EXAM MEASUREMENTS: Bone mineral densitometry was performed using the [employer]. Bone mineral density as measured about the Lumbar spine is: ----- L1-L4(G/cm2): 0.993 T Score Values are as follows: ----- L1: -1.5 ----- L2: -2.2 ----- L3: -2.4 ----- L4: -0.4 ----- L1-L4: -1.6 Bone mineral density has: INCREASED 9.9 % since study of: 2019 Bone mineral density about the R hip (g/cm2): 0.838 Bone mineral density about the L hip (g/cm2): 0.858 T Score values are as follows: -----R Neck: -1.4 -----L Neck: -1.3 -----R Total: -0.7 -----L Total: -0.4 Bone mineral density has: INCREASED 0.9 % since study of: 2019 FRAX%s: The graph provided illustrates a 3.8 % chance for a major osteoporotic fx and a 0.6 % chance for the hips probability for fx in 10 years time. IMPRESSION: Osteopenia (T Score between -2.5 and -1). There is slightly increased risk of fracture and the patient may be considered for treatment. Re-Screen 2-5 years. NOTE: T-SCORE=SD OF THE YOUNG ADULT MEAN.
--- NOTE | 2022-04-05 20:07 | MM ---
Reason for Exam: Screening (asymptomatic). Last screening mammogram was performed 12 month(s) ago. Patient History: Menarche at age 9. First Full-Term at age 27. Hysterectomy at age 53. Postmenopausal. Hormonal Contraceptives for 8 years, 6 months, from age 20 until age 30. 06/07/2004, Benign Stereotactic Core Biopsy on the right side. Mother had breast cancer, age 65. Risk Values: Mellisa 5 year model risk: 4.0%. NCI Lifetime model risk: 16.2%. Prior Study Comparison: 07/12/2018 Bilateral Screening Mammogram, [facility]. 11/05/2019 Bilateral Screening Mammogram, [facility]. 03/16/2021 Bilateral Screening Mammogram, [facility]. Tissue Density: The breast tissue is heterogeneously dense. This may lower the sensitivity of mammography. Findings: Analyzed By CAD. Chronic nodularity upper outer quadrant right breast. Microclip also upper outer quadrant right breast from prior biopsy. Some regional punctate calcifications are unchanged. No significant change from prior exams. Overall Assessment: Benign, BI-RAD 2 Management: Screening Mammogram of both breasts in 1 year. 1. Note that per NCCN guidelines, a five-year risk assessment greater than 1.67% above the standard risk is used to assess eligibility for a risk reducing agent. 2. Patient should continue monthly self breast exams. 3. This exam should not preclude additional follow-up of suspicious palpable abnormalities. Electronically signed and approved by: Ade Rockwell M.D. Radiologist
== END | disposition home or self-care (01) ==
LOC: RADMAMWWP 15:17
PROVIDERS: ATTEND Obstetrics & Gynecology
DX: Z12.31 Encounter for screening mammogram for malignant neoplasm of breast (principal); M85.89 Other specified disorders of bone density and structure, multiple sites; Z78.0 Asymptomatic menopausal state; Z80.3 Family history of malignant neoplasm of breast
CPT/HCPCS: 77063; 77067; 77080

== ENCOUNTER → 2022-09-22 | Outpatient (CLI) | payer MEDICAID ==
--- NOTE | 2022-09-22 15:28 | P.PN ---
Subjective DATE: 09/22/2022 FOLLOW UP VISIT. Patient with obstructive sleep apnea hypopnea syndrome return to sleep center for follow-up visit. Information from previous visit have been reviewed. Patient is using PAP equipment every night for the whole night, getting PAP supplies in time. The patient does not have significant problems with the mask, PAP unit and humidification. [place] sleepiness scale is 3, which is normal. I checked information from PAP unit. PAP unit pressure 5-10, average 9.9 cm H2O. Usage is 100 % for more then 4 hours, average 5.6 hours per night. Leak is 20 l/m, which is in acceptable range. Apnea Hypopnea Index is 0.8, which is normal. MEDICATIONS:1. Zyrtec During physical exam: GENERAL: A pleasant patient without any distress. VITAL SIGNS: BP 119/68, HR 70, RR 12, weight 189.2, temperature 97.8, oxygen saturation at room air 95 % . HEENT: PERRLA, EOMI.low position of soft palate, Mallapati 4 . NECK: Supple. No JVD. LUNGS: Clear to percussion and to auscultation. Good air exchange. No wheezing or rhonchi. HEART: S1, S2 regular. ABDOMEN: Soft and nontender.[] EXTREMITIES: No clubbing or cyanosis. DIRECTOR OF ACCOUNTS PAYABLE: Awake, alert, and oriented x3. No focal deficit. Impressions: 1. Obstructive sleep apnea-hypopnea syndrome. Patient demonstrated great compliance with treatment, benefiting from treatment. 2. Mild obesity, BMI 33.2, patient increased weight on 15 pounds comparing with previous visit. 3. Seasonal ALLERGY. 4. Status post total hysterectomy. Plan: 1. Continue using PAP equipment every night for the whole night. 2. To change air filter at least 1-2 times per month. 3. PAP unit should stay lower then position of the head. 4. Advised patient to remove all remaining water from humidifier canister daily and make it dry after each usage. Refill canister with fresh distilled water before each usage. 5. Sleep hygiene with regular time in bed for at least 8 hours. 6. Precautions related to driving. No driving if feel any sleepiness. 7. I will maintain prescription for PAP supplies including mask, tube, filters. 8. Follow up visit in 6 months or earlier if patient has any problems. 9. Watching and losing weight. Thank you very much for allowing me to participate in the management of your patient. Danny Best MD, PhD, FAASM. Diplomat of [place] [employer], Sleep Medicine Board by [place] [employer] Ui Designer of [facility] [place]
== END ==
LOC: SLEEP 15:11
PROVIDERS: ATTEND Internal Medicine
DX: G47.33 Obstructive sleep apnea (adult) (pediatric) (principal); E66.9 Obesity, unspecified; J30.2 Other seasonal allergic rhinitis; Z68.33 Body mass index [BMI] 33.0-33.9, adult; Z90.710 Acquired absence of both cervix and uterus; Z99.89 Dependence on other enabling machines and devices; Z88.0 Allergy status to penicillin; Z91.040 Latex allergy status; Z88.4 Allergy status to anesthetic agent
CPT/HCPCS: 99212

== ENCOUNTER → 2023-06-05 | Outpatient (CLI) | payer MEDICARE ==
--- NOTE | 2023-06-07 09:59 | MM ---
Reason for Exam: Screening (asymptomatic). Last mammogram was performed 1 year(s) and 2 month(s) ago. Patient History: Menarche at age 9. First Full-Term at age 27. Hysterectomy at age 53. Postmenopausal. Hormonal Contraceptives for 8 years, 6 months, from age 20 until age 30. 06/07/2004, Benign Stereotactic Core Biopsy on the right side. Mother had breast cancer, age 65. Risk Values: Mellisa 5 year model risk: 4.2%. NCI Lifetime model risk: 15.2%. Prior Study Comparison: 11/05/2019 Bilateral Screening Mammogram, [facility]. 03/16/2021 Bilateral Screening Mammogram, [facility]. 04/04/2022 Bilateral MG 3D screening mammo w/cad, [facility]. Tissue Density: The breast tissue is heterogeneously dense. This may lower the sensitivity of mammography. Findings: Analyzed By CAD. Right breast biopsy clip. There is no suspicious group of microcalcifications or new suspicious mass. Overall Assessment: Benign, BI-RAD 2 Management: Screening Mammogram of both breasts in [address] [facility] will attempt to contact patient to return for supplemental views and ultrasound if indicated. Patient should continue monthly self-breast exams. A clinical breast exam by your physician is recommended on an annual basis. This exam should not preclude additional follow-up of suspicious palpable abnormalities. Note on Mellisa scores and lifetime risk: 1. A Mellisa score greater than 3% is considered moderate risk. If this is the case, consider specialist referral to assess eligibility for a risk reducing agent. 2. If overall lifetime risk for the development of breast cancer is 20% or higher, the patient may qualify for future screening with alternating mammogram and breast MRI. Electronically signed and approved by: Thai Chacon DO
== END | disposition home or self-care (01) ==
LOC: RADMAMWWP 13:45
PROVIDERS: ATTEND Obstetrics & Gynecology
DX: Z12.31 Encounter for screening mammogram for malignant neoplasm of breast (principal); Z80.3 Family history of malignant neoplasm of breast; Z78.0 Asymptomatic menopausal state
CPT/HCPCS: 77063; 77067

== ENCOUNTER → 2023-06-09 | Outpatient (CLI) | payer MEDICARE ==
[2023-06-09 08:13] LABS: Appearance,Urine Clear (Clear); Bacteria,Urine Rare /hpf; Bilirubin,Urine Negative (Negative); Blood,Urine Trace (Negative); Color,Urine Light Yellow; Glucose,Urine (UA) Negative (Negative); Ketones,Urine Negative (Negative); Leukocyte Esterase,Urine Small (Negative); Mucus,Urine Rare /hpf; Nitrite,Urine Negative (Negative); PH, Urine 5.5 (5.0-8.0); Protein,Urine Negative (Negative); RBC,Urine 1 /hpf (0-5); Specific Gravity,Urine 1.026 (1.001-1.035); Squamous Epithelial Cell,Urine 6 /hpf (0-4); Urobilinogen,Urine <2.0 mg/dL (<2.0); WBC,Urine 5 /hpf (0-5)
[2023-06-09 08:40] LABS: HCT 42.4 % (34.0-46.0); HGB 14.1 gm/dL (11.4-16.0); MCH 30.1 pg (25.0-35.0); MCHC 33.3 g/dL (31.0-37.0); MCV 90.5 fL (80.0-100.0); Mean Platelet Volume 8.6; Platelet Count 233 k/uL (150-450); RBC 4.68 m/uL (3.80-5.40); RDW 12.2 % (11.5-15.5); WBC 4.1 k/uL (3.8-10.6)
[2023-06-09 10:14] LABS: ALT 25 U/L (4-34); AST 26 U/L (14-36); African American GFR (CKD) >90 (>60 ml/min/1.73 sqM); Albumin 4.1 g/dL (3.5-5.0); Albumin/Globulin Ratio 1.5; Alkaline Phosphatase 93 U/L (38-126); Anion Gap 6 mmol/L; Blood Urea Nitrogen 18 mg/dL (7-17); Calcium 9.8 mg/dL (8.4-10.2); Carbon Dioxide 25 mmol/L (22-30); Chloride 110 mmol/L (98-107); Globulin 2.7 g/dL; Glucose 94 mg/dL (74-99); Non-African American GFR(CKD) >90 (>60 ml/min/1.73 sqM); Potassium 4.3 mmol/L (3.5-5.1); Sodium 141 mmol/L (137-145); Total Bilirubin 0.5 mg/dL (0.2-1.3); Total Protein 6.8 g/dL (6.3-8.2)
[2023-06-09 10:33] LABS: T4, Free (Free Thyroxine) 0.97 ng/dL (0.78-2.19)
[2023-06-09 13:19] LABS: HIV 2 AB Non-Reactive (Non-Reactive); HIV AB P24 Non-Reactive (Non-Reactive); HIV P24 AG Non-Reactive (Non-Reactive)
[2023-06-09 16:38] LABS: Chol/HDL Ratio 2.94 Ratio; LDL Cholesterol,Calculated 86.6 mg/dL (0.0-131.0)
== END | disposition home or self-care (01) ==
LOC: LABWHC1 06:59
PROVIDERS: ATTEND Obstetrics & Gynecology
DX: Z13.220 Encounter for screening for lipoid disorders (principal); Z11.59 Encounter for screening for other viral diseases; Z13.1 Encounter for screening for diabetes mellitus; Z11.4 Encounter for screening for human immunodeficiency virus [HIV]; E55.9 Vitamin D deficiency, unspecified
CPT/HCPCS: 36415; 80053; 80061; 81001; 82306; 83036; 84439; 84443; 85027; 86803; 87390

== ENCOUNTER → 2023-09-21 | Outpatient (CLI) | payer MEDICARE ==
--- NOTE | 2023-09-21 15:36 | P.PN ---
Subjective DATE: 09/21/2023 FOLLOW UP VISIT. Patient with obstructive sleep apnea hypopnea syndrome return to sleep center for follow-up visit. Information from previous visit have been reviewed. Patient is using PAP equipment every night for the whole night, getting PAP supplies in time. The patient does not have significant problems with the mask, PAP unit and humidification. [place] sleepiness scale is 2, which is normal. I checked information from PAP unit. PAP unit pressure 5-10, average 9.9 cm H2O. Usage is 100% for more then 4 hours, average 6.7 hours per night. Leak is increased to 37 l/m. Apnea Hypopnea Index is 1.1, which is normal. MEDICATIONS: None During physical exam: GENERAL: A pleasant patient without any distress. VITAL SIGNS: Please see below, weight 183 pounds, BMI 33.2. HEENT: PERRLA, EOMI.low position of soft palate, Mallapati 4 . NECK: Supple. No JVD. LUNGS: Clear to percussion and to auscultation. Good air exchange. No wheezing or rhonchi. HEART: S1, S2 regular. ABDOMEN: Soft and nontender.[] EXTREMITIES: No clubbing or cyanosis. 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 No focal deficit. Impressions: 1. Obstructive sleep apnea-hypopnea syndrome. Patient demonstrated great compliance with treatment, benefiting from treatment. 2. Mild obesity, BMI 33.2, patient lost 6 pounds comparing with the previous visit. 3. Seasonal allergy. 4. Status post total hysterectomy. I explained to the patient how to adjust level of humidity, level was decreased from level 4 to level 3. Plan: 1. Continue using PAP equipment every night for the whole night. 2. To change air filter at least 1-2 times per month. 3. PAP unit should stay lower then position of the head. 4. Advised patient to remove all remaining water from humidifier canister daily and make it dry after each usage. Refill canister with fresh distilled water before each usage. 5. Sleep hygiene with regular time in bed for at least 8 hours. 6. Precautions related to driving. No driving if feel any sleepiness. 7. I will maintain prescription for PAP supplies including mask, tube, filters. 8. Follow up visit in 6 months or earlier if patient has any problems. 9. Watching and continue losing weight. Thank you very much for allowing me to participate in the management of your patient. Danny Best MD, PhD, FAASM. Diplomat of [employer], Sleep Medicine Board by [employer] [facility] [place] Objective - Vital Signs Vital signs: Vital Signs Temp 98.0 F 09/21/23 15:14 Pulse 70 09/21/23 15:14 Resp 16 09/21/23 15:14 BP 125/72 09/21/23 15:14 Pulse Ox 97 09/21/23 15:14 FiO2 Intake & Output 09/20/23 09/21/23 09/21/23 18:59 06:59 18:59 Weight 83.007 kg
[2023-09-21 15:55] VITALS: BP 125/72; PULSE 70; RESP 16; TEMP 98
== END ==
LOC: 3 N SLEEP 14:54
PROVIDERS: ATTEND Internal Medicine
DX: G47.33 Obstructive sleep apnea (adult) (pediatric) (principal); E66.9 Obesity, unspecified; J30.2 Other seasonal allergic rhinitis; Z68.33 Body mass index [BMI] 33.0-33.9, adult; Z90.710 Acquired absence of both cervix and uterus; Z99.89 Dependence on other enabling machines and devices; Z91.040 Latex allergy status; Z88.0 Allergy status to penicillin; Z88.8 Allergy status to other drugs, medicaments and biological substances
CPT/HCPCS: 99212

== ENCOUNTER → 2024-03-22 | Outpatient (CLI) | payer OTHER, BC ==
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
== END | disposition home or self-care (01) ==
LOC: LABWHC1 08:09
PROVIDERS: ATTEND Family Medicine
DX: M25.561 Pain in right knee (principal)

== ENCOUNTER → 2024-09-03 | Outpatient (CLI) | payer MEDICARE ==
[2024-09-03 13:40] VITALS: BP 144/82; PULSE 75; RESP 16; TEMP 98.4
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
== END ==
LOC: WWCWWP 13:06
PROVIDERS: ATTEND Obstetrics & Gynecology
DX: Z01.419 Encounter for gynecological examination (general) (routine) without abnormal findings (principal); Z78.0 Asymptomatic menopausal state; N99.3 Prolapse of vaginal vault after hysterectomy; Z87.39 Personal history of other diseases of the musculoskeletal system and connective tissue; Z88.0 Allergy status to penicillin; Z91.040 Latex allergy status; Z88.4 Allergy status to anesthetic agent

== ENCOUNTER → 2024-10-02 | Outpatient (CLI) | payer MEDICARE ==
[2024-10-02 14:35] VITALS: BP 118/71; PULSE 63; RESP 12; TEMP 98.2
--- NOTE | 2024-10-02 15:23 | P.PROGSL ---
Subjective DATE: 10/02/2024 FOLLOW UP VISIT. Patient with obstructive sleep apnea hypopnea syndrome return to sleep center for follow-up visit. Information from previous visit have been reviewed. Patient is using PAP equipment every night for the whole night, getting PAP supplies in time. The patient does not have significant problems with the mask, PAP unit and humidification. Oto sleepiness scale is 3, which is normal. I checked information from PAP unit. PAP unit pressure 510, average 9.1 cm H2O. Usage is 100% for more then 4 hours, average 6.8 hours per night. Leak is 8 l/m, which is in acceptable range. Apnea Hypopnea Index is 1.7, which is normal. MEDICATIONS have been reviewed, please see below. During physical exam: GENERAL: A pleasant patient without any distress. VITAL SIGNS: Please see below, weight is 186.8 lbs. HEENT: PERRLA, EOMI.low position of soft palate, Mallapati 4 . NECK: Supple. No JVD. LUNGS: Clear to percussion and to auscultation. Good air exchange. No wheezing or rhonchi. HEART: S1, S2 regular. ABDOMEN: Soft and nontender.[] EXTREMITIES: No clubbing or cyanosis. 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 No focal deficit. Impressions: 1. Obstructive sleep apnea-hypopnea syndrome. Patient demonstrated great compliance with treatment, benefiting from treatment. 2. Mild obesity, BMI 32.9, patient lost 3 pounds comparing with previous visit. 3. Seasonal allergy. 4. Status post total hysterectomy. Plan: 1. Continue using PAP equipment every night for the whole night. 2. Sleep hygiene with regular time in bed for at least 7.5-8 hours 3. PAP unit should stay lower then position of the head. 4. Advised patient to remove all remaining water from humidifier canister daily and make it dry after each usage. Refill canister with fresh distilled water before each usage. 5. Watching and continue losing weight. 6. Precautions related to driving. No driving if feel any sleepiness. 7. I will maintain prescription for PAP supplies including mask, tube, filters. 8. Follow up visit in 8 months or earlier if patient has any problems. Thank you very much for allowing me to participate in the management of your patient. Danny Best MD, PhD, FAASM. Diplomat of [place] [employer], Sleep Medicine Board by [employer] Stenciling Machine T[facility] [place] Objective - Vital Signs Vital Signs: Vital Signs Temp 98.2 F 10/02/24 14:33 Pulse 63 10/02/24 14:33 Resp 12 10/02/24 14:33 BP 118/71 10/02/24 14:33 Pulse Ox 98 10/02/24 14:33 FiO2 Intake & Output 10/01/24 10/02/24 10/02/24 18:59 06:59 18:59 Weight 84.368 kg Home Medications: Home Medications Medication Instructions Recorded Confirmed Type Cetirizine HCl/Pseudoephedrine 1 tab PO BID PRN 10/29/19 09/03/24 History [Zyrtec-D Tablet] Calcium Carbonate/Vitamin D3 1 each PO DAILY 09/03/24 09/03/24 History [Calcium 600-Vit D3 10 mcg (400 Iu)]
== END ==
LOC: 3 N SLEEP 14:05
PROVIDERS: ATTEND Internal Medicine
DX: G47.33 Obstructive sleep apnea (adult) (pediatric) (principal); E66.9 Obesity, unspecified; J30.2 Other seasonal allergic rhinitis; Z68.32 Body mass index [BMI] 32.0-32.9, adult; Z90.710 Acquired absence of both cervix and uterus; Z88.0 Allergy status to penicillin; Z88.5 Allergy status to narcotic agent; Z91.040 Latex allergy status; Z99.89 Dependence on other enabling machines and devices
CPT/HCPCS: 99212